=== PATIENT | female | born 2000 | race Caucasian/White ===

== ENCOUNTER 2021-01-30 11:59 | Emergency (ER) | payer OTHER, SELFPAY ==
[~2021-01-30] VITALS: Ht 188 cm; Wt 140.6 kg
[2021-01-30 12:00] VITALS: BP_SYST 141
== END 2021-01-30 12:12 | disposition home or self-care (01) ==
LOC: SED 11:59
DX: U07.1 COVID-19 (principal); R06.02 Shortness of breath
CPT/HCPCS: 99281